=== PATIENT | female | born 1955 | race Caucasian/White ===

== ENCOUNTER 2025-05-23 11:00 | Outpatient (CLI) | payer MEDICARE ==
[2025-05-27 07:13] LABS: Estimated GFR - POC 97.0
== END 2025-05-23 11:01 | disposition home or self-care (01) ==
LOC: MRI 11:00
PROVIDERS: ATTEND Internal Medicine Gastroenterology
DX: Z15.09 Genetic susceptibility to other malignant neoplasm (principal); R93.5 Abnormal findings on diagnostic imaging of other abdominal regions, including retroperitoneum
CPT/HCPCS: 74183; 82565